=== PATIENT | female | born 1955 | race Caucasian/White ===

== ENCOUNTER 2023-09-28 13:48 | Outpatient (OUT) | payer OTHER, MEDICARE, SELFPAY ==
[2023-09-28 14:17] LABS: Potassium 4.8 mmol/L (3.5-5.1); Sodium 136 mmol/L (136-145)
[2023-09-28 14:18] LABS: Anion Gap 12.9; BUN Creatinine Ratio 13.9; Calcium 9.5 mg/dL (8.5-10.1); Carbon Dioxide 25.9 mmol/L (21.0-32.0); Chloride 102 mmol/L (98-107); Estimated GFR (African America >60 (>=60); Estimated GFR (Non-African Ame 50 (>=60); Glucose 194 mg/dL (74-106)
--- NOTE | 2023-09-28 14:37 | CT_ITS ---
[address] [address] Patient Name: CADE HURTADO MRN: [facility]:[id number] date: 1955 Sex: F Assigned Patient Location: LAB Current Patient Location: Accession/Order Number: [id number] Exam Date: 09/28/2023 14:23 Report Date: 09/29/2023 08:24 At the request of: TAHIRA ORTA Procedure: CT chest w con EXAMINATION: CT chest w con HISTORY: Chronic Obstructive Pulmonary Disease J44.9 COMPARISON: 12/23/2015 TECHNIQUE: Multi-planar CT images were created with IV contrast. Axial, Coronal, and Sagittal images. Dose reduction techniques were achieved by using automated exposure control and/or adjustment of mA and/or kV according to patient size and/or use of iterative reconstruction technique. FINDINGS: LUNGS: Mild centrilobular emphysema with an upper lobe predominance. Scattered subcentimeter pulmonary nodules increased both in number and size. Remaining nonspecific. Stable air-filled cavitary appearance of the right upper lung zone. Persistent partial consolidation of the right middle and lower lobes with air bronchograms.. PLEURA: Rind of soft tissue right upper to midlung zone could represent complex loculated pleural effusion, stable VASCULATURE: Normal postcontrast opacification of the central pulmonary arterial tree with no filling defect to suggest a pulmonary embolus RORY: No new pathologic lymphadenopathy MEDIASTINUM: No new pathologic lymphadenopathy CARDIAC: No enlargement or pericardial effusion Coronary arteries: Moderate calcifications AORTA: No aneurysm CHEST WALL: No mass or axillary adenopathy. BONES: Contour deformity of the right rib cage with sclerosis of multiple ribs, grossly stable LIMITED ABDOMEN: Surgical clips from cholecystectomy OTHER: Negative. CT/CT chest w con IMPRESSION: Stable chronic changes in the right lung with no new lymphadenopathy or significant pulmonary mass Electronically authenticated by: ANTHONY MORRISSEY Date: 09/29/2023 08:24
== END 2023-09-28 13:49 | disposition home or self-care (01) ==
LOC: LAB 13:48
PROVIDERS: PCP Family Medicine; Visit Provider Family Medicine
DX: J44.9 Chronic obstructive pulmonary disease, unspecified (principal); C34.91 Malignant neoplasm of unspecified part of right bronchus or lung; Z79.899 Other long term (current) drug therapy
CPT/HCPCS: 36415; 71260; 80048; Q9967